=== PATIENT | male | born 1955 | race Caucasian/White ===

== ENCOUNTER 2018-11-09 02:28 | Inpatient (IN) | payer MEDICAID | END 2018-11-11 12:37 | disposition home or self-care (01) | DRG 200 | LOC: D.ER 02:28 → D.MS 05:55 | PROVIDERS: ADMIT Emergency Medicine | DX: S27.0XXA Traumatic pneumothorax, initial encounter (principal); S22.41XA Multiple fractures of ribs, right side, initial encounter for closed fracture; T79.7XXA Traumatic subcutaneous emphysema, initial encounter; S92.411A Displaced fracture of proximal phalanx of right great toe, initial encounter for closed fracture; B19.20 Unspecified viral hepatitis C without hepatic coma; S20.311A Abrasion of right front wall of thorax, initial encounter; W20.8XXA Other cause of strike by thrown, projected or falling object, initial encounter; Z72.51 High risk heterosexual behavior; Z72.0 Tobacco use ==